=== PATIENT | male | born 1965 | race Caucasian/White ===

== ENCOUNTER 2018-07-16 12:16 | Emergency (ER) | payer BC, SELFPAY ==
[2018-07-16 12:17] VITALS: BP 164/82; PULSE 65; RESP 15; TEMP 36; O2SAT 99; BMI 38.1
--- NOTE | 2018-07-16 12:42 | CT_ITS ---
STUDY: CT ABDOMEN AND PELVIS WITH CONTRAST REASON FOR EXAM: Male, 52 years old. Lower abdominal pain and cramping. Vomiting today. RADIATION DOSAGE (If Supplied By Facility): CTDIvol = ( 16.92 ) mGy, DLP = ( 35173.79 ) mGycm TECHNIQUE: Transaxial images were obtained from the dome of the diaphragm to the symphysis pubis with oral contrast. Isovue 300 100 IV/Oral was administered. Sagittal and coronal images were reconstructed. Individualized dose optimization techniques were used for this CT. COMPARISON: None. FINDINGS: The visualized lung bases are unremarkable. The visualized portions of the heart are within normal limits. Mild fatty infiltration of liver without focal mass. Normal gallbladder and extrahepatic biliary system. Normal spleen. Normal pancreas. Normal bilateral adrenal glands. Normal right kidney. Normal left kidney. Normal bilateral ureters. Normal visualized stomach. Normal small intestine. There is diffuse diverticuli. There is wall thickening and stranding of the distal descending and sigmoid colon consistent with mild diverticulitis. There is no perforation or abscess. There is non-visualization of the appendix. Normal abdominal aorta. Normal inferior vena cava. Normal retroperitoneum. Normal urinary bladder. Normal prostate. There is no pelvic lymphadenopathy. No free air or free fluid is seen within the peritoneal cavity. There is a small umbilical and small bilateral inguinal hernias. Omental fat. The abdominal wall is otherwise unremarkable. There are minimal degenerative changes of the lumbar spine. CT/Abdomen/Pelvis WITH Contrast IMPRESSION: 1. Sigmoid diverticulitis. 2. Mild fatty infiltration of the liver. 3. Degenerative changes of the lumbar spine. Electronically Signed: Mg Rees DO at 15:16 EDT Tel [phone], Service support ,
--- NOTE | 2018-07-16 12:43 | ED.DCSUM_ITS ---
- ER Visit Summary Date of Service: 07/16/18 Chief Complaint: Abdominal pain History of Present Illness: The patient is a 52 M who woke at 3 AM this morning with lower abdominal pain. Patient states he feels like he is constipated but he cannot go. Had a normal bowel movement yesterday. Patient does report having similar symptoms last weekend but not as severe. He reports subjective fever and chills. Patient denies any prior abdominal surgeries. He denies any personal history of diverticulitis. He is never had a colonoscopy. Physical Examination: Vital signs significant for blood pressure of 164/82, otherwise unremarkable. Patient sitting upright in bed no acute distress. Heart is regular rate and rhythm. Lung sounds are clear. Abdomen is soft with tenderness over the lower abdomen. There is no guarding or rebound. Hypoactive bowel sounds are present. Test Results: CBC was normal white count with 82% neutrophils. Hemoglobin is concentrated at 16.8. Chemistry studies unremarkable. CT abdomen pelvis shows sigmoid diverticulitis. Degenerative changes of the L-spine are noted. Emergency Department Course and Treatment: Patient received morphine, Zofran, and IV fluids here. Test results are discussed with patient and at bedside. He will be treated with Cipro and Flagyl. He will be referred to surgery for follow-up and colonoscopy as needed. Treatment Plan: [] Disposition: Discharge Impression: Sigmoid diverticulitis This note was generated with [employer] dictation software. It may contain incorrect words, spelling, and punctuation that were not noted in review of the chart prior to signing
[2018-07-16] MEDS: 0.9% Normal Saline 1,000 ML 150 ML IV (12:49)
[2018-07-16] MEDS: Ondansetron 4 MG/2 ML Vial IV (12:49)
[2018-07-16] MEDS: Morphine 4 MG/ML Syringe IV (12:49)
[2018-07-16 12:52] LABS: Absolute Lymphocyte Count 0.95 X10^3/ul (0.83-4.51); Absolute Neutrophil Count 8.5 X10^3/uL (2.0-7.7); Basophil# 0.02 X10^3/uL; Basophil% 0.2 % (0-1); Eosinophil# 0.04 X10^3/uL; Eosinophils% 0.4 % (0-5); Hematocrit 49.2 % (40-54); Hemoglobin 16.8 g/dl (13.0-16.5); Lymphocyte # 0.95 X10^3/ul (4.0); Lymphocyte % 9.3 % (19-41); Mean Corp Hgb Conc 34.1 g/gl (32-36); Mean Corpuscular Hgb 29.4 pg (27.0-32.0); Mean Platelet Vol. 10.4 fl (6.2-12.0); Monocyte# 0.68 X10^3/uL; Monocyte% 6.7 % (0-10); Neutrophil # 8.46 X10^3/uL (2.7-7.7); Neutrophil % 82.8 % (47-70); Platelet Count 258 K/mm3 (150-450); RBC Distribution Width CV 13.8 % (11.6-14.6); RBC Distribution Width SD 43.1 fl (35.1-43.9); Red Blood Count 5.72 M/mm3 (4.6-6.2); White Blood Count 10.2 K/mm3 (4.4-11.0)
[2018-07-16 12:56] LABS: POSITIVE COUNT NO; POSITIVE DIFFERENTIAL NO; POSITIVE MORPHOLOGY NO
[2018-07-16 13:05] LABS: Anion Gap 6 (5-15); BUN 13 mg/dL (7-18); BUN/Creat Ratio 10.5 RATIO (10-20); Calcium,Total 8.5 mg/dL (8.5-10.1); Chloride 107 mmol/L (98-107); Creatinine, Serum 1.24 mg/dL (0.70-1.30); EST Glomerular Filtration Rate 65 mL/min (>60); Est Glom Filt Rate - Afr Amer 79 mL/min (>60); Estimated Creatinine Clearance 72.77 ml/min; Glucose 144 mg/dL (74-106); Potassium 3.9 mmol/L (3.5-5.1); Sodium Level 139 mmol/L (136-145)
[2018-07-16 14:21] LABS: Bacteria 0 SEEN /hpf (None Seen); Mucous, Urine 0 SEEN /hpf (<or=2+); Red Blood Cells-Urine 0 SEEN /hpf (0-5); Squamous Epithelial Cells - UA 0 SEEN /hpf (0-5); White Blood Cells 0 SEEN /hpf (0-5)
[2018-07-16 14:27] LABS: Color, Urine Yellow (Yellow); Glucose, Dipstick Normal (Normal); Ketone-Dipstick Negative (Negative); Leukocyte Esterase-Dipstick Negative /ul (Negative); Nitrite-Dipstick Negative (Negative); Occult Blood-Urine Negative /ul (Negative); Protein-Dipstick Negative (Negative); Urine Bilirubin Dipstick Negative (Negative); Urine Clarity Clear (Clear); Urine Urobilinogen Normal (Normal); Urine pH 6.5 (5.0 - 8.0)
[2018-07-16 14:44] VITALS: BP 142/82; PULSE 53; RESP 16; O2SAT 98
--- NOTE | 2018-07-16 15:23 | ED.DEP ---
ED Disposition - Plan for ED Patient: Disposition: Home or Assisted Living Instructions: ED Diverticulitis Prescriptions: Ciprofloxacin [Cipro] 500 mg PO BID #14 tablet Metronidazole [Flagyl] 500 mg PO Q6H #40 tablet Referrals: Dale Thurman MD [STAFF PHYSICIAN] - 1-2 Weeks
[2018-07-16 15:32] VITALS: BP 142/88; PULSE 55; O2SAT 98
[2018-07-16] MEDS: metroNIDAZOLE 500 MG Tablet PO (15:34)
[2018-07-16] MEDS: Ciprofloxacin 500 MG Tablet PO (15:34)
== END 2018-07-16 15:38 | disposition home or self-care (01) ==
PROVIDERS: Emergency Provider Emergency Medicine
DX: K57.32 Diverticulitis of large intestine without perforation or abscess without bleeding (principal); I10 Essential (primary) hypertension
CPT/HCPCS: 74177; 80048; 81001; 85025; 96361; 96374; 96375; 99284; J7030; Q9967; A4216; J2405

== ENCOUNTER 2020-10-08 04:43 | Emergency (ER) | payer BC, SELFPAY ==
[2020-10-08 04:45] VITALS: BP 154/88; PULSE 61; RESP 16; TEMP 36.8; O2SAT 95; BMI 39.0
[2020-10-08] MEDS: Fluorescein 1 MG STRIP 1 STRIP LEFT EYE (05:16)
[2020-10-08] MEDS: Tetracaine 0.5% Ophthalmic Bottle 1 DRP LEFT EYE (05:17)
--- NOTE | 2020-10-08 05:23 | EX.ED.DYSGE1 ---
HPI History of Present Illness Chief Complaint: General Illness Informant: patient Narrative Narrative: Patient is a 55-year-old male with a past medical history of hypertension who presents to the emergency department for rash over the left forehead. He has been having ear pain with this. It started 3 or 4 days ago. He has been having a headache with this. Nothing has seemed to help it. He currently rates his pain as a 8 out of 10. He denies any history of this before in the past. He does get some pain when closing his eye. No significant painful eye movements. No rashes or lesions noted elsewhere. Denies any fevers or chills. No neck pain or stiffness. No chest pain or shortness of breath. No cough or cold-like symptoms. He denies any nausea/vomiting or abdominal pain. No change in moving bowels. Patient denies a history of shingles. [facility] Medical History (Updated 10/08/20 @ 05:[address] Adriel Padilla DO) Hypertension Home Medications Bystolic 10 mg PO DAILY 07/16/18 [History Last Taken 07/16/18] hydrocodone-acetaminophen 1 tab PO Q6H PRN 4 Days #12 tab 10/08/20 [Rx Last Taken Unknown] prednisone 40 mg PO DAILY 4 Days #8 tab 10/08/20 [Rx Last Taken Unknown] valacyclovir 1,000 mg PO TID 7 Days #21 tab 10/08/20 [Rx Last Taken Unknown] Allergy/AdvReac Type Severity Reaction Status Date / Time Penicillins Allergy Rash Verified 10/08/20 04:48 Social History Smoking Status: Never smoker ROS ROS ED Constitutional Constitutional ED: Denies chills or fever(s) Eyes Eyes: Denies change in vision ENT ENT ED: Reports ear pain; Denies epistaxis or rhinorrhea Cardiovascular Cardiovascular: Denies chest pain or palpitations Respiratory/Chest Respiratory/Chest: Denies cough, dyspnea or dyspnea on exertion Gastrointestinal Gastrointestinal: Denies abdominal pain, diarrhea, nausea or vomiting Genitourinary Genitourinary ED: Denies dysuria, hematuria or urinary frequency Musculoskeletal Musculoskeletal: Denies back pain or neck pain Integumentary Reports rash Neurologic Neurologic: Reports headache(s); Denies dizziness or weakness EXAM Physical Exam Const Vital Signs: 10/08/20 04:45 10/08/20 04:50 Temperature 98.2 F Temperature Source Temporal Pulse Rate 61 Respiratory Rate 16 Respiratory Pattern Normal Blood Pressure 154/88 H Blood Pressure Mean 110 Pulse Ox 95 Oxygen Delivery Method Room Air Positive well nourished and well developed General Appearance ED: well developed and NAD HEENT Reports head/scalp atraumatic and moist mucous membranes Eyes PERRL and EOMs intact bilaterally Neck supple General: Negative for tenderness Resp normal respiratory effort and clear to auscultation bilaterally Auscultation: Negative for rales, rhonchi or wheezes Cardio regular rate, regular rhythm and no murmurs GI normal to inspection, nondistended, normoactive bowel sounds and non-tender Extremity normal to inspection General Extremety ED: Negative for edema or tenderness General Extremity: Negative for edema Neuro oriented x3, CN's II-XII intact bilaterally and no sensory deficits noted Sensorium / Orientation: alert Motor Exam: strength 5/5 throughout Psych mental status grossly normal Skin Skin Narrative: Erythematous, raised rash that starts in the midline of the forehead and spreads to the left side. Fluorescein exam performed of the left eye which did not reveal any dendritic lesions. No rash over the nose. Ear does not appear to be affected. No lesions on the internal ear. There are what appears to be vesicles developing. No blistering. No rash noted elsewhere. MDM MDM MDM Narrative Medical decision making narrative: Patient presents to the emerge department for rash to the left forehead. This does not cross midline. This does appear to be herpes zoster. Fluorescein exam performed which did not reveal any eye lesions. Negative Hart sign. Will treat with valacyclovir, prednisone and [place]. He is given referral for ophthalmology given the distribution. He otherwise is to follow-up with his PCP. Return precautions are reviewed. Discharge Plan Triage Chief Complaint: General Illness ED Provider: Adriel Padilla Dx/Rx/DC Orders Clinical Impression: Herpes zoster Instructions: ED Shingles (Herpes Zoster) Prescriptions: New valacyclovir 1 gram tablet 1,000 mg PO TID 7 Days Qty: 21 RF: 0 prednisone 20 mg tablet 40 mg PO DAILY 4 Days Qty: 8 RF: 0 hydrocodone-acetaminophen 5-325 mg tablet 1 tab PO Q6H PRN (Reason: pain) 4 Days Qty: 12 RF: 0 No Action Bystolic 10 tablet 10 mg PO DAILY RF: 0 Referrals: Linden Hall MD [STAFF PHYSICIAN] - 2 Days Activity Restrictions/Additional Instructions: Please follow up with your PCP in 3-5 days Disposition Disposition: Home, self care
== END 2020-10-08 06:04 | disposition home or self-care (01) ==
PROVIDERS: Emergency Provider Emergency Medicine
DX: B02.9 Zoster without complications (principal); I10 Essential (primary) hypertension; Z79.899 Other long term (current) drug therapy
CPT/HCPCS: 90471; 99284

== ENCOUNTER 2024-08-26 14:07 | Emergency (ER) | payer BC, SELFPAY ==
[2024-08-26 14:08] VITALS: BP 139/86; PULSE 59; RESP 16; TEMP 35.9; O2SAT 99; BMI 32.8
--- NOTE | 2024-08-26 14:22 | EDS_ITS ---
HPI HPI - Fall History of Present Illness Chief Complaint: Fall Occured/Mechanism Occurred: Today Narrative: Patient fell off of a ladder Fall from Height (ft): 5 Usually ambulates: Without assistance Pain/Injury Location: Right shoulder and upper lip Pain Location: face and upper extremity Quality of Pain: Sharp and Aching Worsened by: Movement Relieved by: Aleve Associated Symptoms Associated Symptoms: Negative for Parasthesias, Weakness, Loss of function, Inability to ambulate, Loss of consciousness or Amnesia Narrative Narrative: Patient presents after a fall. Patient states he was on a ladder and fell approximately 5 feet off of the ladder. Patient states he landed on his right shoulder. Patient states he tried to put himself up with his right shoulder and then fell forward onto his face. Patient denies any loss of consciousness. Patient denies any paresthesias or weakness. Patient states his pain is sharp and aching. Patient states it is worse with any movement. Patient denies any paresthesias or weakness. Patient denies any other injuries. [facility] Medical History Hypertension Home Medications ?Medication ?Instructions ?Recorded ?Last Taken ?Type hydrocodone-acetaminophen 5-325mg 1 tab PO Q6H PRN PRN Pain 3 days 08/26/24 Unknown Rx 5mg-325mg #10 TABLETS Allergy/AdvReac Type Severity Reaction Status Date / Time Penicillins Allergy Rash Verified 08/26/24 14:10 Surgical History no surgical history no surgical history Social History Smoking Status: Never smoker ROS ROS ED Constitutional Constitutional ED: Denies chills or fever(s) Eyes Eyes: Denies blurry vision or change in vision ENT ENT ED: Denies rhinorrhea or sore throat Cardiovascular Cardiovascular: Denies chest pain or palpitations Respiratory/Chest Respiratory/Chest: Denies cough or dyspnea Gastrointestinal Gastrointestinal: Denies nausea or vomiting Genitourinary Genitourinary ED: Denies dysuria or hematuria Musculoskeletal Musculoskeletal: Denies back pain or neck pain Integumentary Denies abscess or rash Neurologic Neurologic: Denies headache(s) or weakness Allergic/Immunologic Allergic/Immunologic ED: Denies mouth swelling or urticaria EXAM Physical Exam Const Vital Signs: 08/26/24 14:08 08/26/24 14:19 Temperature 96.6 F L Temperature Source Temporal Pulse Rate 59 L Respiratory Rate 16 Respiratory Effort Normal Blood Pressure 139/86 H Blood Pressure Mean 103 Pulse Ox 99 Oxygen Delivery Method Room Air Positive well nourished and well developed General Appearance ED: well developed and NAD HEENT HEENT Narrative: There is edema and ecchymosis of the upper lip. Teeth are intact. There is no bony crepitance or step-off noted. There is no tenderness over the facial bones. There is no tenderness over the mandible. Neck full ROM and supple Extremity Extremity Narrative: There is tenderness over the right proximal humerus and shoulder area. There is no obvious deformity noted. Range of motion was limited in all motions of the right shoulder secondary to pain. Strength is 5/5 in the radial, median, and ulnar areas. Sensation was intact to light touch in the radial, median, and ulnar areas. Radial pulses are equal bilaterally. Neuro oriented x3, CN's II-XII intact bilaterally, moves all extremities, no focal motor deficits and no sensory deficits noted Byron Coma Scale: document GCS findings Spontaneous Obeys Commands Oriented 15 Sensorium / Orientation: alert Motor Exam: strength 5/5 throughout MDM MDM MDM Narrative Medical decision making narrative: Differential diagnosis includes proximal humerus fracture, shoulder dislocation, clavicle fracture, contusion, and facial contusion. X-rays of the right shoulder will be obtained to assess for fracture and dislocation. Radiography Diagnostic Testing: Clinical Impression(s) from Imaging Studies Shoulder X-Ray 08/26/24 14:30 IMPRESSION: DEGENERATIVE OSTEOARTHROSIS. NO ACUTE FINDINGS. Reading Location: [facility] X-rays of the right shoulder were obtained. There are 5 views. On my independent interpretation, there is no acute fracture or dislocation noted. There are some degenerative changes noted. Radiologist also interpreted the x- rays and agrees. Treatment and Re-Evaluation Narrative: . Patient was given a dose of Rayle here. Patient was advised of his findings. Patient was given a sling for comfort. Patient was instructed to take it out of the sling and do range of motion exercises. Patient was instructed to use ice to the area. Patient was given a prescription for short course of Rayle. Patient was instructed to follow-up with his primary care physician in 5 to 7 days for further evaluation. Patient was advised that there could be a rotator cuff tear or other soft tissue injury that is not seen on the x-ray. Patient understood and was agreeable with the plan. All questions were answered. Discharge Plan Triage Chief Complaint: Fall ED Provider: Sedrick Parker Dx/Rx/DC Orders Clinical Impression: Sprain of right shoulder, Fall Instructions: ED Shoulder Sprain Prescriptions: New hydrocodone-acetaminophen 5-325 mg tablet 1 tab PO Q6H PRN PRN (Reason: Pain) 3 Days Qty: 10 0RF Primary Care Provider: Jevon De Leon Referrals: Jevon De Leon MD [Primary Care Provider] - 5-7 Days Print Language: Amharic Disposition Disposition: Home, Self Care
[2024-08-26] MEDS: HYDROcodone Bitartrate/Apap 5/325 Tablet PO (14:30)
--- NOTE | 2024-08-26 14:30 | RAD_ITS ---
PROCEDURE: SHOULDER MIN 2 VIEWS 08/26/2024 REASON FOR EXAM: INJURY/PAIN fall from proximally 5 ft from a ladder. TECHNIQUE: Five views of the right shoulder. COMPARISON: None. FINDINGS: Bones: No acute fracture or aggressive osseous lesion. Joints: Normal alignment. Moderate degenerative changes of the glenohumeral and acromioclavicular joints. Soft tissues: Soft tissues are unremarkable. Other: Visualized portions of the right lung are clear. RAD/Shoulder min 2 Views IMPRESSION: DEGENERATIVE OSTEOARTHROSIS. NO ACUTE FINDINGS. Reading Location: [id number]
[2024-08-26 15:25] VITALS: BP 139/86; PULSE 60; RESP 16; TEMP 36.4; O2SAT 99
== END 2024-08-26 15:26 | disposition home or self-care (01) ==
PROVIDERS: Emergency Provider Emergency Medicine; PCP Internal Medicine; Visit Provider Emergency Medicine
DX: S43.401A Unspecified sprain of right shoulder joint, initial encounter (principal); I10 Essential (primary) hypertension; W11.XXXA Fall on and from ladder, initial encounter
CPT/HCPCS: 73030; 99283